=== PATIENT | female | born 1975 | race African-American/Black ===

== ENCOUNTER 2017-05-05 12:50 | Inpatient (IN) | payer OTHER ==
[2017-05-05 15:43] VITALS: BMI 22.3
--- NOTE | 2017-05-05 21:16 | HP ---
CIWA Score - CIWA Score Nausea/Vomitin-Cont. Nausea/Vomiting Muscle Tremors: 4-Moderate,w/Arms Extend Anxiety: 4-Mod. Anxious/Guarded Agitation: 4-Moderately Restless Paroxysmal Sweats: 1-Minimal Palms Moist Orientation: 0-Oriented Tacttile Disturbances: 2-Mild Itch/Numbness/Burn Auditory Disturbances: 0-None Visual Disturbances: 0-None Headache: 0-None Present CIWA-Ar Total Score: 22 Admission ROS S - HPI Chief Complaint: c/o withdrawal sx. seeking detox txment Allergies/Adverse Reactions: Allergies Allergy/AdvReac Type Severity Reaction Status Date / Time No Known Allergies Allergy Verified 05/05/17 20:39 History of Present Illness: 41 Y.O. MALE WITH LONG HX/O ALCOHOLISM SEEKING DETOX TXMENT. CLIENT IS KNOWN TO [facility]. COMPLETED REHAB A MONTH AGO AT [facility] BUT HAS SINCE RELAPSED. SELF REFERRED. PENDING LEGAL ISSUES BUT NOT COURT MANDATED. REPORTS LONGEST CLEAN TIME 1 YEAR. Exam Limitations: No Limitations - Ebola screening Have you traveled outside of the country in the last 21 days: No Have you had contact with anyone from an Ebola affected area: No Have you been sick,other than usual withdrawal symptoms: No Do you have a fever: No - Review of Systems Constitutional: Chills, Loss of Appetite, Night Sweats, Unintentional Wgt. Loss EENT: reports: Tinnitus (LEFT EAR) Respiratory: reports: No Symptoms reported Cardiac: reports: No Symptoms Reported GI: reports: Diarrhea, Poor Appetite, Poor Fluid Intake : reports: No Symptoms Reported Musculoskeletal: reports: Joint Pain (R KNEE) Integumentary: reports: No Symptoms Reported Neuro: reports: Seizure (5 YEARS AGO R/T DRUG AND ALCOHOL) Endocrine: reports: Other (GOITER) Hematology: reports: No Symptoms Reported Psychiatric: reports: Anxious, Depressed Other Systems: Reviewed and Negative Patient History - Patient Medical History Hx Anemia: Yes (NO TXMENT) Hx Asthma: No Hx Chronic Obstructive Pulmonary Disease (COPD): No Hx Cancer: No Hx Cardiac Disorders: Yes (HAD OPEN HEART SURGERY AGE 6) Hx Congestive Heart Failure: No Hx Hypertension: No Hx Hypercholesterolemia: No Hx Pacemaker: No HX Cerebrovascular Accident: No Hx Seizures: No Hx Dementia: No Hx Diabetes: No Hx Gastrointestinal Disorders: No Hx Liver Disease: No Hx Genitourinary Disorders: No Hx Sexually Transmitted Disorders: No Hx Renal Disease (ESRD): No Hx Thyroid Disease: Yes (GOITER) Hx Human Immunodeficiency Virus (HIV): No Hx Hepatitis C: No Hx Depression: Yes (ON MEDS) Hx Suicide Attempt: No Hx Bipolar Disorder: Yes (ON MEDS) Hx Schizophrenia: No Other Medical History: DENIES - Patient Surgical History Past Surgical History: Yes Hx Neurologic Surgery: No Hx Cataract Extraction: No Hx Cardiac Surgery: Yes (asd-left chest ) Hx Lung Surgery: No Hx Breast Surgery: No Hx Breast Biopsy: No Hx Abdominal Surgery: No Hx Appendectomy: No Hx Cholecystectomy: No Hx Genitourinary Surgery: No Hx Section: No Hx Orthopedic Surgery: No Anesthesia Reaction: No - PPD History Previous Implant?: Yes Documented Results: Negative w/proof Implanted On Prior [facility] Admission?: Yes Date: 08/08/15 Results: 0MM PPD to be Administered?: Yes - Reproductive History Patient is a Female of Child Bearing Age (11 -55 yrs old): Yes Last Menstrual Period: 04/27/17 LMP comment: REG Patient : No ([place] - Smoking Cessation Smoking history: Current every day smoker Have you smoked in the past 12 months: Yes Aproximately how many cigarettes per day: 6 Cigars Per Day: 0 Hx Chewing Tobacco Use: No Initiated information on smoking cessation: Yes 'Breaking Loose' booklet given: 05/05/17 - Substance & Tx. History Hx Alcohol Use: Yes Hx Substance Use: Yes Substance Use Type: Alcohol, Cocaine Hx Substance Use Treatment: Yes ([facility]) - Substances Abused LIQUOR Route: Oral Frequency: Daily Amount used: 2 PINTS Age of first use: 19 Date of Last Use: 05/04/17 COCAINE Route: Inhalation Frequency: 3-6 times per week Amount used: 2 BAGS Age of first use: 32 Date of Last Use: 05/04/17 Family Disease History - Family Disease History Family Disease History: CA: Father (prostate), Mother (ovarian ), Respiratory: Mother Admission Physical Exam S - Vital Signs Vital Signs: Vital Signs - 24 hr 05/05/17 15:38 Temperature 97.8 F Pulse Rate 93 H Respiratory 18 Rate Blood Pressure 123/80 - Physical General Appearance: Yes: Appropriately Dressed, Mild Distress, Tremorous, Anxious HEENTM: Yes: EOMI, Normocephalic, MARYA, Pharynx Normal Respiratory: Yes: Chest Non-Tender, Lungs Clear, Normal Breath Sounds, No Respiratory Distress, No Accessory Muscle Use Neck: Yes: No masses,lesions,Nodules, Supple, Thyroid enlarged, Other (GOITER) Breast: Yes: Breast Exam Deferred Cardiology: Yes: Regular Rhythm, S1, S2, Tachycardia Abdominal: Yes: Normal Bowel Sounds, Non Tender, Flat, Soft Genitourinary: Yes: Within Normal Limits Back: Yes: Surgical Scar Musculoskeletal: Yes: full range of Motion, Gait Steady Extremities: Yes: Normal Capillary Refill, Normal Range of Motion, Non-Tender, Tremors Neurological: Yes: Fully Oriented, Alert, Motor Strength 5/5 Integumentary: Yes: Normal Color, Dry, Warm Lymphatic: Yes: Within Normal Limits - Diagnostic (1) Nicotine dependence Current Visit: Yes Status: Acute Qualifiers: Nicotine product type: cigarettes Substance use status: uncomplicated Qualified Code(s): F17.210 - Nicotine dependence, cigarettes, uncomplicated (2) Alcohol dependence with uncomplicated withdrawal Current Visit: Yes Status: Chronic (3) Cannabis abuse Current Visit: No Status: Chronic (4) Cocaine dependence Current Visit: No Status: Chronic Qualifiers: Substance use status: uncomplicated Qualified Code(s): F14.20 - Cocaine dependence, uncomplicated (5) Goiter Current Visit: No Status: Chronic Cleared for Admission [facility] - Detox or Rehab [facility] Level of Care: Medically Managed Detox Regimen/Protocol: Valium Claeared for Rehab Admission: No S Breath Alcohol Content Breath Alcohol Content: 0 Urine Pregancy Test - Result Urine Test Results: Negative- NO Line Present Urine Drug Screen - Results Drug Screen Negative: No Urine Drug Screen Results: THC-Marijuana, ALEX-Cocaine
[2017-05-05] MEDS ORDERED: MENTHOL/PHENOL 1 EACH UD MM PRN (21:29)
[2017-05-05] MEDS ORDERED: NICOTINE POLACRILEX 2 MG GUM BC PRN (21:29)
[2017-05-05] MEDS ORDERED: IBUPROFEN 400 MG TABLET (FP) PO PRN (21:29)
[2017-05-05] MEDS ORDERED: ACETAMINOPHEN 325 MG TABLET (FP) PO PRN (21:29)
[2017-05-05] MEDS ORDERED: MAGNESIUM CITRATE 300 ML BOTTLE PO PRN (21:29)
[2017-05-05] MEDS ORDERED: guaiFENesin/D-METHORPHAN HB 10 ML UNIT-DOSE CUPS PO PRN (21:29)
[2017-05-05] MEDS ORDERED: MAGNESIUM HYDROX 2400MG/30ML ORAL SUSPENSION 30 ML CUP PO PRN (21:29)
[2017-05-05] MEDS ORDERED: LOPERAMIDE HCL 2 MG CAPSULE PO PRN (21:29)
[2017-05-05] MEDS ORDERED: MAG HYDROX/AL HYDROX/SIMETH 30 ML UNIT-DOSE CUP PO PRN (21:29)
[2017-05-05] MEDS ORDERED: P-EPHED 60MG/TRIPROLIDI 2.5MG TABLET PO PRN (21:29)
[2017-05-05] MEDS ORDERED: diazePAM 5 MG TABLET PO ONE (21:29)
[2017-05-05] MEDS: THIAMINE HCL 100 MG TABLET (FP) PO SCH (22:50)
[2017-05-05] MEDS: hydrOXYzine PAMOATE 50 MG CAPSULE (FP) PO PRN (22:50)
[2017-05-05] MEDS: diazePAM 5 MG TABLET PO SCH (22:51)
[2017-05-06] MEDS: diazePAM 5 MG TABLET PO SCH ×3 (06:30→22:33)
[2017-05-06 09:58] LABS: HEMOGLOBIN 12.1 GM/dL (10.7-15.3); WHITE BLOOD COUNT 5.8 K/mm3 (4.0-10.0)
[2017-05-06 10:00] LABS: MCH 29.9 pg (25.7-33.7); MCHC 31.8 g/dl (32.0-36.0); MEAN CELL VOLUME 94.1 fl (80-96); MEAN PLT VOLUME 8.3 fl (7.5-11.1); PLATELET COUNT 268 K/MM3 (134-434); RBC 4.04 M/mm3 (3.60-5.2); RDW 12.7 % (11.6-15.6)
[2017-05-06 10:16] LABS: CHLORIDE 106 mmol/L (98-107); POTASSIUM 3.9 mmol/L (3.5-5.1); SODIUM 143 mmol/L (136-145)
[2017-05-06 10:33] LABS: ALBUMIN 3.2 g/dl (3.4-5.0); ALK PHOS 76 U/L (45-117); ANION GAP 7 (8-16); BILIRUBIN,TOTAL 0.4 mg/dL (0.2-1.0); BLOOD UREA NITROGEN 12 mg/dL (7-18); CALCIUM 8.1 mg/dL (8.5-10.1); CO2 30 mmol/L (21-32); GLUCOSE,RANDOM 81 mg/dL (74-106); SGOT/AST 13 U/L (15-37); SGPT/ALT 18 U/L (12-78); TOT PROT 6.7 g/dl (6.4-8.2)
[2017-05-06] MEDS: PRENATAL VITAMINS W/ FOLIC ACID TABLET (FP) PO SCH (11:46)
[2017-05-06] MEDS: NICOTINE 14 MG/24 HOURS TOPICAL PATCH TD SCH (11:47)
--- NOTE | 2017-05-06 12:25 | EKG ---
Test Reason : Blood Pressure : / mmHG Vent. Rate : 073 BPM Atrial Rate : 073 BPM P-R Int : 138 ms QRS Dur : 130 ms QT Int : 436 ms P-R-T Axes : 065 040 067 degrees QTc Int : 480 ms NORMAL SINUS RHYTHM RIGHT BUNDLE BRANCH BLOCK ABNORMAL ECG NO PREVIOUS ECGS AVAILABLE Confirmed by MD HOWARD, KELLY ([id number]) on 05/06/2017 12:25:10 PM Referred By: Confirmed By:KELLY LAWRENEC MD
--- NOTE | 2017-05-06 13:46 | PN ---
S CIWA - CIWA Score Nausea/Vomitin Muscle Tremors: 3 Anxiety: 3 Agitation: 3 Paroxysmal Sweats: 3 Orientation: 0-Oriented Tacttile Disturbances: 1-Very Mild Itch/Numbness Auditory Disturbances: 0-None Visual Disturbances: 0-None Headache: 0-None Present CIWA-Ar Total Score: 15 S Progress Note (SOAP) Subjective: shakes sweats Objective: 05/06/17 13:44 Vital Signs Temperature 98.4 F 05/06/17 11:58 Pulse Rate 78 05/06/17 11:58 Respiratory Rate 18 05/06/17 11:58 Blood Pressure 112/73 05/06/17 11:58 O2 Sat by Pulse Oximetry (%) Laboratory Last Values WBC 5.8 K/mm3 (4.0-10.0) 05/06/17 06:06 RBC 4.04 M/mm3 (3.60-5.2) 05/06/17 06:06 Hgb 12.1 GM/dL (10.7-15.3) 05/06/17 06:06 Hct 38.0 % (32.4-45.2) 05/06/17 06:06 MCV 94.1 fl (80-96) 05/06/17 06:06 MCH 29.9 pg (25.7-33.7) 05/06/17 06:06 MCHC 31.8 g/dl (32.0-36.0) L 05/06/17 06:06 RDW 12.7 % (11.6-15.6) 05/06/17 06:06 Plt Count 268 K/MM3 (134-434) 05/06/17 06:06 MPV 8.3 fl (7.5-11.1) 05/06/17 06:06 Sodium 143 mmol/L (136-145) 05/06/17 06:06 Potassium 3.9 mmol/L (3.5-5.1) 05/06/17 06:06 Chloride 106 mmol/L (98-107) 05/06/17 06:06 Carbon Dioxide 30 mmol/L (21-32) 05/06/17 06:06 Anion Gap 7 (8-16) L 05/06/17 06:06 BUN 12 mg/dL (7-18) 05/06/17 06:06 Creatinine 1.0 mg/dL (0.55-1.02) 05/06/17 06:06 Creat Clearance w eGFR > 60 (>60) 05/06/17 06:06 Random Glucose 81 mg/dL (74-106) 05/06/17 06:06 Calcium 8.1 mg/dL (8.5-10.1) L 05/06/17 06:06 Total Bilirubin 0.4 mg/dL (0.2-1.0) D 05/06/17 06:06 AST 13 U/L (15-37) L 05/06/17 06:06 ALT 18 U/L (12-78) 05/06/17 06:06 Alkaline Phosphatase 76 U/L (45-117) 05/06/17 06:06 Total Protein 6.7 g/dl (6.4-8.2) 05/06/17 06:06 Albumin 3.2 g/dl (3.4-5.0) L 05/06/17 06:06 RPR Titer Nonreactive (NONREACTIVE) 05/06/17 06:06 labs noted Assessment: 05/06/17 13:45 withdrawal sx Plan: continue detox
[2017-05-06] MEDS: diazePAM 5 MG TABLET PO PRN (17:16)
--- NOTE | 2017-05-06 17:18 | CONSULT ---
[facility] Psychiatric Consult - Data Date of interview: 05/06/17 Admission source: [facility] Identifying data: Readmission to [facility] for this 41 y/o AA female seeking detox treatment on for alcohol,cocaine and marihuana dependence.Patient is single,a mother of two,domiciled,unemployed and supported on food stamps. Substance Abuse History: Confirmed by patient in this interview : Smoking history: Current every day smoker. Have you smoked in the past 12 months: Yes. Aproximately how many cigarettes per day: 6. Cigars Per Day: 0. Hx Chewing Tobacco Use: No. Initiated information on smoking cessation: Yes. 'Breaking Loose' booklet given: 05/05/17. - Substance & Tx. History. Hx Alcohol Use: Yes. Hx Substance Use: Yes. Substance Use Type: Alcohol, Cocaine. Hx Substance Use Treatment: Yes ([facility]). - Substances Abused. LIQUOR. Route: Oral. Frequency: Daily. Amount used: 2 PINTS. Age of first use: 19. Date of Last Use: 05/04/17. COCAINE. Route: Inhalation. Frequency: 3-6 times per week. Amount used: 2 BAGS. Age of first use: 32. Date of Last Use: 05/04/17 Medical History: Anemia,goiter and a remote history of open heart surgery (age [age]) for atrial septal defect. Psychiatric History: First contact with Psychiatry (age 18).Issues : behavioral disturbances and school truancy.Diagnosed later in life with Bipolar Disorder.Currently maintained on seroquel 200 mg/hs + 50 mg/am in combination with depakote 500 mg po bid.Ms Salazar admits to 3-4 psychiatric hospitalizations ([facility] and [facility]).Lost to psychiatric OPD care.Patient indicates that she gets medications from sporadic admissions to local detox/rehab units (recently discharged from [facility]).Denies history of suicide attempts. Physical/Sexual Abuse/Trauma History: Patient denies. Additional Comment: Urine Drug Screen Results: THC-Marijuana, ALEX-Cocaine.Noted. Mental Status Exam - Mental Status Exam Alert and Oriented to: Time, Place, Person Cognitive Function: Good Patient Appearance: Well Groomed Mood: Hopeful, Euthymic Affect: Appropriate, Normal Range Patient Behavior: Fatigued, Cooperative Speech Pattern: Clear, Appropriate Voice Loudness: Normal Thought Process: Intact, Goal Oriented Thought Disorder: Not Present Hallucinations: Denies Suicidal Ideation: Denies Homicidal Ideation: Denies Insight/Judgement: Poor Sleep: Poorly, Difficulty falling asleep Appetite: Good Muscle strength/Tone: Normal Gait/Station: Normal Psychiatric Findings - Problem List ([place] 1, 2,3) (1) Alcohol dependence with uncomplicated withdrawal Current Visit: Yes Status: Acute (2) Cannabis abuse Current Visit: Yes Status: Acute (3) Cocaine dependence Current Visit: Yes Status: Acute Qualifiers: Substance use status: uncomplicated Qualified Code(s): F14.20 - Cocaine dependence, uncomplicated (4) Nicotine dependence Current Visit: Yes Status: Acute Qualifiers: Nicotine product type: cigarettes Substance use status: uncomplicated Qualified Code(s): F17.210 - Nicotine dependence, cigarettes, uncomplicated (5) Substance induced mood disorder Current Visit: Yes Status: Acute (6) Bipolar disorder Current Visit: Yes Status: Chronic Comment: History.Currently asymptomatic.Prescribed medications.Non-adherent to OPD care. (7) Insomnia Current Visit: Yes Status: Acute - Initial Treatment Plan Initial Treatment Plan: Records at [facility] : revisited.Psychoeducation and support provided in this session.Sleeep hygiene discussed.Detoxification in effect.Medications : seroquel 100 mg po hs + depakote 250 mg po bid.Ordered.Titration to follow if good tolerability.Side effects/benefits of both drugs are discussed with the patient.Informed of potential for liver dysfunction,blood dyscrasias,weight gain,hair loss,polycystic ovary (valproate) and oversedation,abnormal involuntary movements,metabolic syndrome and cardiovascular adverse events (quetiapine).No reported history of adverse effects on this regimen.Patient consented (verbally) to resume these medications.Observation.
[2017-05-06] MEDS: THIAMINE HCL 100 MG TABLET (FP) PO SCH (22:32)
[2017-05-06] MEDS: DIVALPROEX SODIUM 250 MG TABLET E.C. (FP) PO SCH (22:33)
[2017-05-06] MEDS: QUEtiapine FUMARATE 100 MG TABLET (FP) PO SCH (22:33)
--- NOTE | 2017-05-07 10:18 | PN ---
[facility] CIWA - CIWA Score Nausea/Vomitin-No Nausea/No Vomiting Muscle Tremors: 3 Anxiety: 3 Agitation: 3 Paroxysmal Sweats: 1-Minimal Palms Moist Orientation: 0-Oriented Tacttile Disturbances: 0-None Auditory Disturbances: 0-None Visual Disturbances: 0-None Headache: 0-None Present CIWA-Ar Total Score: 10 S Progress Note (SOAP) Subjective: tremor sweat anxiety Objective: 05/07/17 10:17 Vital Signs Temperature 98.2 F 05/07/17 06:00 Pulse Rate 71 05/07/17 06:00 Respiratory Rate 16 05/07/17 06:00 Blood Pressure 91/61 05/07/17 06:00 O2 Sat by Pulse Oximetry (%) Laboratory Last Values WBC 5.8 K/mm3 (4.0-10.0) 05/06/17 06:06 RBC 4.04 M/mm3 (3.60-5.2) 05/06/17 06:06 Hgb 12.1 GM/dL (10.7-15.3) 05/06/17 06:06 Hct 38.0 % (32.4-45.2) 05/06/17 06:06 MCV 94.1 fl (80-96) 05/06/17 06:06 MCH 29.9 pg (25.7-33.7) 05/06/17 06:06 MCHC 31.8 g/dl (32.0-36.0) L 05/06/17 06:06 RDW 12.7 % (11.6-15.6) 05/06/17 06:06 Plt Count 268 K/MM3 (134-434) 05/06/17 06:06 MPV 8.3 fl (7.5-11.1) 05/06/17 06:06 Sodium 143 mmol/L (136-145) 05/06/17 06:06 Potassium 3.9 mmol/L (3.5-5.1) 05/06/17 06:06 Chloride 106 mmol/L (98-107) 05/06/17 06:06 Carbon Dioxide 30 mmol/L (21-32) 05/06/17 06:06 Anion Gap 7 (8-16) L 05/06/17 06:06 BUN 12 mg/dL (7-18) 05/06/17 06:06 Creatinine 1.0 mg/dL (0.55-1.02) 05/06/17 06:06 Creat Clearance w eGFR > 60 (>60) 05/06/17 06:06 Random Glucose 81 mg/dL (74-106) 05/06/17 06:06 Calcium 8.1 mg/dL (8.5-10.1) L 05/06/17 06:06 Total Bilirubin 0.4 mg/dL (0.2-1.0) D 05/06/17 06:06 AST 13 U/L (15-37) L 05/06/17 06:06 ALT 18 U/L (12-78) 05/06/17 06:06 Alkaline Phosphatase 76 U/L (45-117) 05/06/17 06:06 Total Protein 6.7 g/dl (6.4-8.2) 05/06/17 06:06 Albumin 3.2 g/dl (3.4-5.0) L 05/06/17 06:06 RPR Titer Nonreactive (NONREACTIVE) 05/06/17 06:06 Hepatitis C Antibody <0.1 s/co ratio (0.0-0.9) 05/06/17 06:06 lab noted Assessment: 05/07/17 10:17 withdrawal sx Plan: continue detox
[2017-05-07] MEDS: diazePAM 5 MG TABLET PO SCH ×2 (10:52→22:33)
[2017-05-07] MEDS: PRENATAL VITAMINS W/ FOLIC ACID TABLET (FP) PO SCH (10:52)
[2017-05-07] MEDS: DIVALPROEX SODIUM 250 MG TABLET E.C. (FP) PO SCH ×2 (10:53→22:33)
[2017-05-07] MEDS: NICOTINE 14 MG/24 HOURS TOPICAL PATCH TD SCH (10:53)
--- NOTE | 2017-05-07 11:55 | PN ---
Psychiatric Progress Note Vital Signs: Vital Signs Period Temp Pulse Resp BP Sys/Gray Pulse Ox Last 24 Hr 96.4 F-98.8 F 71-83 16-18 91-118/57-74 Current Medications: Active Medications Generic Name Dose Route Start Last Admin Trade Name Freq PRN Reason Stop Dose Admin Acetaminophen 650 mg 05/05/17 21:29 Tylenol - PO Q4H PRN FEVER Al Hydroxide/Mg Hydroxide 30 ml 05/05/17 21:29 Mylanta Oral Suspension - PO Q6H PRN DYSPEPSIA Diazepam 10 mg 05/05/17 21:29 05/06/17 17:16 Valium - PO 05/08/17 21:28 10 mg Q4H PRN Administration WITHDRAWAL(CONT SUBST) Diazepam 5 mg 05/07/17 10:00 05/07/17 10:52 Valium - PO 05/08/17 22:01 5 mg BID DONNIE Administration Diazepam 5 mg 05/09/17 10:00 Valium - PO 05/09/17 10:01 DAILY DONNIE Divalproex Sodium 250 mg 05/06/17 22:00 05/07/17 10:53 Depakote - PO 250 mg BID DONNIE Administration Eucalyptus/Menthol/Phenol/Sorbitol 1 each 05/05/17 21:29 Cepastat Lozenge - MM Q4H PRN SORE THROAT Guaifenesin 10 ml 05/05/17 21:29 Robitussin Dm - PO Q6H PRN COUGH Hydroxyzine Pamoate 50 mg 05/05/17 21:29 05/05/17 22:50 Vistaril - PO 50 mg Q4H PRN Administration AGITATION Ibuprofen 400 mg 05/05/17 21:29 Motrin - PO Q6H PRN PAIN LEVEL 4-6 Loperamide HCl 4 mg 05/05/17 21:29 Imodium - PO Q6H PRN DIARRHEA Magnesium Citrate 300 ml 05/05/17 21:29 Citroma - PO Q48H PRN CONSTIPATION Magnesium Hydroxide 30 ml 05/05/17 21:29 Milk Of Magnesia - PO DAILY PRN CONSTIPATION Nicotine 14 mg 05/06/17 10:00 05/07/17 10:53 Nicoderm Patch - TD Not Given DAILY DONNIE Nicotine Polacrilex 2 mg 05/05/17 21:29 Nicorette Gum - BC Q2H PRN NICOTINE REPLACEMENT RX Multivit/Folic Acid/Iron 1 tab 05/06/17 10:00 05/07/17 10:52 Vitamins (Sjr) - PO 1 tab DAILY DONNIE Administration Pseudoephedrine/Triprolidine 1 combo 05/05/17 21:29 Actifed - PO TID PRN NASAL CONGESTION Quetiapine Fumarate 100 mg 05/06/17 22:00 05/06/17 22:33 Seroquel - PO 100 mg HS DONNIE Administration Thiamine HCl 100 mg 05/05/17 22:00 05/06/17 22:32 Vitamin B1 - PO 100 mg HS DONNIE Administration
--- NOTE | 2017-05-07 12:02 | PN ---
Psychiatric Progress Note Vital Signs: Vital Signs Period Temp Pulse Resp BP Sys/Gray Pulse Ox Last 24 Hr 96.4 F-98.8 F 71-83 16-18 91-118/57-74 Date of Session: 05/07/17 Chief Complaint:: Request for morning dose of Seroquel HPI: Patient addressing Alcohol and Cannabid Dependence Current Medications: Active Medications Generic Name Dose Route Start Last Admin Trade Name Freq PRN Reason Stop Dose Admin Acetaminophen 650 mg 05/05/17 21:29 Tylenol - PO Q4H PRN FEVER Al Hydroxide/Mg Hydroxide 30 ml 05/05/17 21:29 Mylanta Oral Suspension - PO Q6H PRN DYSPEPSIA Diazepam 10 mg 05/05/17 21:29 05/06/17 17:16 Valium - PO 05/08/17 21:28 10 mg Q4H PRN Administration WITHDRAWAL(CONT SUBST) Diazepam 5 mg 05/07/17 10:00 05/07/17 10:52 Valium - PO 05/08/17 22:01 5 mg BID DONNIE Administration Diazepam 5 mg 05/09/17 10:00 Valium - PO 05/09/17 10:01 DAILY DONNIE Divalproex Sodium 250 mg 05/06/17 22:00 05/07/17 10:53 Depakote - PO 250 mg BID DONNIE Administration Eucalyptus/Menthol/Phenol/Sorbitol 1 each 05/05/17 21:29 Cepastat Lozenge - MM Q4H PRN SORE THROAT Guaifenesin 10 ml 05/05/17 21:29 Robitussin Dm - PO Q6H PRN COUGH Hydroxyzine Pamoate 50 mg 05/05/17 21:29 05/05/17 22:50 Vistaril - PO 50 mg Q4H PRN Administration AGITATION Ibuprofen 400 mg 05/05/17 21:29 Motrin - PO Q6H PRN PAIN LEVEL 4-6 Loperamide HCl 4 mg 05/05/17 21:29 Imodium - PO Q6H PRN DIARRHEA Magnesium Citrate 300 ml 05/05/17 21:29 Citroma - PO Q48H PRN CONSTIPATION Magnesium Hydroxide 30 ml 05/05/17 21:29 Milk Of Magnesia - PO DAILY PRN CONSTIPATION Nicotine 14 mg 05/06/17 10:00 05/07/17 10:53 Nicoderm Patch - TD Not Given DAILY DONNIE Nicotine Polacrilex 2 mg 05/05/17 21:29 Nicorette Gum - BC Q2H PRN NICOTINE REPLACEMENT RX Multivit/Folic Acid/Iron 1 tab 05/06/17 10:00 05/07/17 10:52 Vitamins (Sjr) - PO 1 tab DAILY DONNIE Administration Pseudoephedrine/Triprolidine 1 combo 05/05/17 21:29 Actifed - PO TID PRN NASAL CONGESTION Quetiapine Fumarate 100 mg 05/06/17 22:00 05/06/17 22:33 Seroquel - PO 100 mg HS DONNIE Administration Thiamine HCl 100 mg 05/05/17 22:00 05/06/17 22:32 Vitamin B1 - PO 100 mg HS DONNIE Administration Medication(s) Change(s): Resume Seroquel 50 mg po daily Current Side Effect: No Lab tests ordered: Yes Lab tests reviewed: Yes Provider note:: Patient reports that she was not given her medications as prescribed by her psychiatrist. She said she takes Seroquel 50 mg dailt & 200 mg HS. She was explained the reason for the modification of her med dosage. She requests to be ordered her 50 mg morning dose Total face to face time:: 15 Mental Status Exam - Mental Status Exam Alert and Oriented to: Time, Place, Person Cognitive Function: Fair Patient Appearance: Well Groomed Mood: Hopeful, Euthymic Affect: Appropriate Patient Behavior: Cooperative Speech Pattern: Clear Voice Loudness: Normal Thought Process: Intact, Goal Oriented Thought Disorder: Not Present Hallucinations: Denies Suicidal Ideation: Denies Homicidal Ideation: Denies Insight/Judgement: Poor Sleep: Fair Muscle strength/Tone: Normal Gait/Station: Normal Psychiatric Treatment Plan - Problem List (1) Alcohol dependence with uncomplicated withdrawal Current Visit: Yes (2) Cocaine dependence Current Visit: Yes Qualifiers: Substance use status: uncomplicated Qualified Code(s): F14.20 - Cocaine dependence, uncomplicated (3) Cannabis abuse Current Visit: Yes (4) Nicotine dependence Current Visit: Yes Qualifiers: Nicotine product type: cigarettes Substance use status: uncomplicated Qualified Code(s): F17.210 - Nicotine dependence, cigarettes, uncomplicated (5) Bipolar disorder Current Visit: Yes Comment: History.Currently asymptomatic.Prescribed medications.Non-adherent to OPD care. (6) Substance induced mood disorder Current Visit: Yes Initial treatment plan: 1) Resume Seroquel 50 mg po daily. 2) Continue inpatient detoxification
[2017-05-07] MEDS: QUEtiapine FUMARATE 50 MG TABLET PO SCH (14:09)
[2017-05-07] MEDS: diazePAM 5 MG TABLET PO PRN (20:15)
[2017-05-07] MEDS: THIAMINE HCL 100 MG TABLET (FP) PO SCH (22:33)
[2017-05-07] MEDS: QUEtiapine FUMARATE 100 MG TABLET (FP) PO SCH (22:33)
[2017-05-07] MEDS: hydrOXYzine PAMOATE 50 MG CAPSULE (FP) PO PRN (22:34)
[2017-05-08] MEDS: QUEtiapine FUMARATE 50 MG TABLET PO SCH (10:45)
[2017-05-08] MEDS: NICOTINE 14 MG/24 HOURS TOPICAL PATCH TD SCH (10:45)
[2017-05-08] MEDS: DIVALPROEX SODIUM 250 MG TABLET E.C. (FP) PO SCH ×2 (10:45→22:31)
[2017-05-08] MEDS: PRENATAL VITAMINS W/ FOLIC ACID TABLET (FP) PO SCH (10:45)
[2017-05-08] MEDS: diazePAM 5 MG TABLET PO SCH ×2 (10:46→22:31)
[2017-05-08 13:39] LABS: URINE APPEARANCE SLCLOUDY; URINE BILIRUBIN NEGATIVE (NEGATIVE); URINE BLOOD NEGATIVE (NEGATIVE); URINE COLOR YELLOW; URINE GLUCOSE (UA) NEGATIVE (NEGATIVE); URINE KETONE NEGATIVE (NEGATIVE); URINE LEUK ESTERASE TRACE (NEGATIVE); URINE NITRITE POSITIVE (NEGATIVE); URINE PROTEIN NEGATIVE (NEGATIVE); URINE UROBILINOGEN NEGATIVE mg/dL (0.2-1.0)
[2017-05-08 13:54] LABS: CALCIUM OXALATE CRYSTALS FEW /hpf (NONE SEEN); EPI CELLS RARE /HPF (FEW); URINE BACTERIA MODERATE /hpf (NONE SEEN); URINE MUCUS MODERATE
--- NOTE | 2017-05-08 15:30 | PN ---
[facility] Progress Note (SOAP) Subjective: tired shakes sweats Objective: 05/08/17 15:28 ambulating steadily on unit Vital Signs Temperature 96.3 F L 05/08/17 14:51 Pulse Rate 98 H 05/08/17 14:51 Respiratory Rate 16 05/08/17 14:51 Blood Pressure 148/78 05/08/17 14:51 O2 Sat by Pulse Oximetry (%) Laboratory Last Values WBC 5.8 K/mm3 (4.0-10.0) 05/06/17 06:06 RBC 4.04 M/mm3 (3.60-5.2) 05/06/17 06:06 Hgb 12.1 GM/dL (10.7-15.3) 05/06/17 06:06 Hct 38.0 % (32.4-45.2) 05/06/17 06:06 MCV 94.1 fl (80-96) 05/06/17 06:06 MCH 29.9 pg (25.7-33.7) 05/06/17 06:06 MCHC 31.8 g/dl (32.0-36.0) L 05/06/17 06:06 RDW 12.7 % (11.6-15.6) 05/06/17 06:06 Plt Count 268 K/MM3 (134-434) 05/06/17 06:06 MPV 8.3 fl (7.5-11.1) 05/06/17 06:06 Sodium 143 mmol/L (136-145) 05/06/17 06:06 Potassium 3.9 mmol/L (3.5-5.1) 05/06/17 06:06 Chloride 106 mmol/L (98-107) 05/06/17 06:06 Carbon Dioxide 30 mmol/L (21-32) 05/06/17 06:06 Anion Gap 7 (8-16) L 05/06/17 06:06 BUN 12 mg/dL (7-18) 05/06/17 06:06 Creatinine 1.0 mg/dL (0.55-1.02) 05/06/17 06:06 Creat Clearance w eGFR > 60 (>60) 05/06/17 06:06 Random Glucose 81 mg/dL (74-106) 05/06/17 06:06 Calcium 8.1 mg/dL (8.5-10.1) L 05/06/17 06:06 Total Bilirubin 0.4 mg/dL (0.2-1.0) D 05/06/17 06:06 AST 13 U/L (15-37) L 05/06/17 06:06 ALT 18 U/L (12-78) 05/06/17 06:06 Alkaline Phosphatase 76 U/L (45-117) 05/06/17 06:06 Total Protein 6.7 g/dl (6.4-8.2) 05/06/17 06:06 Albumin 3.2 g/dl (3.4-5.0) L 05/06/17 06:06 Urine Color Yellow 05/08/17 10:40 Urine Appearance Slcloudy 05/08/17 10:40 Urine pH 5.0 (5.0-8.0) 05/08/17 10:40 Ur Specific [place] 1.018 (1.001-1.035) 05/08/17 10:40 Urine Protein Negative (NEGATIVE) 05/08/17 10:40 Urine Glucose (UA) Negative (NEGATIVE) 05/08/17 10:40 Urine Ketones Negative (NEGATIVE) 05/08/17 10:40 Urine Blood Negative (NEGATIVE) 05/08/17 10:40 Urine Nitrite Positive (NEGATIVE) 05/08/17 10:40 Urine Bilirubin Negative (NEGATIVE) 05/08/17 10:40 Urine Urobilinogen Negative mg/dL (0.2-1.0) 05/08/17 10:40 Ur Leukocyte Esterase Trace (NEGATIVE) 05/08/17 10:40 Urine WBC (Auto) 4 /hpf (3-5) 05/08/17 10:40 Urine RBC (Auto) <1 /hpf (0-3) 05/08/17 10:40 Ur Epithelial Cells Rare /HPF (FEW) 05/08/17 10:40 Calcium Oxalate Crystal Few /hpf (NONE SEEN) 05/08/17 10:40 Urine Bacteria Moderate /hpf (NONE SEEN) 05/08/17 10:40 Urine Mucus Moderate 05/08/17 10:40 Valproic Acid 7.665 ug/ml (50-100) L 05/07/17 07:30 RPR Titer Nonreactive (NONREACTIVE) 05/06/17 06:06 Hepatitis C Antibody <0.1 s/co ratio (0.0-0.9) 05/06/17 06:06 labs noted, pt denies UTI symptoms/complaints Assessment: 05/08/17 15:28 withdrawal sx Plan: continue detox increase fluid intake
[2017-05-08] MEDS: hydrOXYzine PAMOATE 50 MG CAPSULE (FP) PO PRN ×2 (17:46→22:32)
[2017-05-08] MEDS: QUEtiapine FUMARATE 100 MG TABLET (FP) PO SCH (22:31)
[2017-05-08] MEDS: THIAMINE HCL 100 MG TABLET (FP) PO SCH (22:31)
[2017-05-09 09:50] VITALS: BP 112/75; PULSE 89; TEMP 97.7
[2017-05-09] MEDS ORDERED: diazePAM 5 MG TABLET PO SCH (10:00)
[2017-05-09] MEDS: PRENATAL VITAMINS W/ FOLIC ACID TABLET (FP) PO SCH (11:07)
[2017-05-09] MEDS: QUEtiapine FUMARATE 50 MG TABLET PO SCH (11:07)
[2017-05-09] MEDS: NICOTINE 14 MG/24 HOURS TOPICAL PATCH TD SCH (11:08)
[2017-05-09] MEDS: DIVALPROEX SODIUM 250 MG TABLET E.C. (FP) PO SCH (11:12)
--- NOTE | 2017-05-09 11:13 | DS ---
[facility] Detox Discharge Summary Admission Date: 05/05/17 Discharge Date: 05/09/17 - History Present History: Alcohol Dependence - Physical Exam Results Vital Signs: Vital Signs Temperature 97.7 F 05/09/17 09:49 Pulse Rate 89 05/09/17 09:49 Respiratory Rate 16 05/09/17 09:49 Blood Pressure 112/75 05/09/17 09:49 O2 Sat by Pulse Oximetry (%) Pertinent Admission Physical Exam Findings: withdrawal sx Vital Signs Temperature 97.7 F 05/09/17 09:49 Pulse Rate 89 05/09/17 09:49 Respiratory Rate 16 05/09/17 09:49 Blood Pressure 112/75 05/09/17 09:49 O2 Sat by Pulse Oximetry (%) Laboratory Last Values WBC 5.8 K/mm3 (4.0-10.0) 05/06/17 06:06 RBC 4.04 M/mm3 (3.60-5.2) 05/06/17 06:06 Hgb 12.1 GM/dL (10.7-15.3) 05/06/17 06:06 Hct 38.0 % (32.4-45.2) 05/06/17 06:06 MCV 94.1 fl (80-96) 05/06/17 06:06 MCH 29.9 pg (25.7-33.7) 05/06/17 06:06 MCHC 31.8 g/dl (32.0-36.0) L 05/06/17 06:06 RDW 12.7 % (11.6-15.6) 05/06/17 06:06 Plt Count 268 K/MM3 (134-434) 05/06/17 06:06 MPV 8.3 fl (7.5-11.1) 05/06/17 06:06 Sodium 143 mmol/L (136-145) 05/06/17 06:06 Potassium 3.9 mmol/L (3.5-5.1) 05/06/17 06:06 Chloride 106 mmol/L (98-107) 05/06/17 06:06 Carbon Dioxide 30 mmol/L (21-32) 05/06/17 06:06 Anion Gap 7 (8-16) L 05/06/17 06:06 BUN 12 mg/dL (7-18) 05/06/17 06:06 Creatinine 1.0 mg/dL (0.55-1.02) 05/06/17 06:06 Creat Clearance w eGFR > 60 (>60) 05/06/17 06:06 Random Glucose 81 mg/dL (74-106) 05/06/17 06:06 Calcium 8.1 mg/dL (8.5-10.1) L 05/06/17 06:06 Total Bilirubin 0.4 mg/dL (0.2-1.0) D 05/06/17 06:06 AST 13 U/L (15-37) L 05/06/17 06:06 ALT 18 U/L (12-78) 05/06/17 06:06 Alkaline Phosphatase 76 U/L (45-117) 05/06/17 06:06 Total Protein 6.7 g/dl (6.4-8.2) 05/06/17 06:06 Albumin 3.2 g/dl (3.4-5.0) L 05/06/17 06:06 Urine Color Yellow 05/08/17 10:40 Urine Appearance Slcloudy 05/08/17 10:40 Urine pH 5.0 (5.0-8.0) 05/08/17 10:40 Ur Specific [place] 1.018 (1.001-1.035) 05/08/17 10:40 Urine Protein Negative (NEGATIVE) 05/08/17 10:40 Urine Glucose (UA) Negative (NEGATIVE) 05/08/17 10:40 Urine Ketones Negative (NEGATIVE) 05/08/17 10:40 Urine Blood Negative (NEGATIVE) 05/08/17 10:40 Urine Nitrite Positive (NEGATIVE) 05/08/17 10:40 Urine Bilirubin Negative (NEGATIVE) 05/08/17 10:40 Urine Urobilinogen Negative mg/dL (0.2-1.0) 05/08/17 10:40 Ur Leukocyte Esterase Trace (NEGATIVE) 05/08/17 10:40 Urine WBC (Auto) 4 /hpf (3-5) 05/08/17 10:40 Urine RBC (Auto) <1 /hpf (0-3) 05/08/17 10:40 Ur Epithelial Cells Rare /HPF (FEW) 05/08/17 10:40 Calcium Oxalate Crystal Few /hpf (NONE SEEN) 05/08/17 10:40 Urine Bacteria Moderate /hpf (NONE SEEN) 05/08/17 10:40 Urine Mucus Moderate 05/08/17 10:40 Valproic Acid 7.665 ug/ml (50-100) L 05/07/17 07:30 RPR Titer Nonreactive (NONREACTIVE) 05/06/17 06:06 Hepatitis C Antibody <0.1 s/co ratio (0.0-0.9) 05/06/17 06:06 lab noted - Treatment Hospital Course: Detox Protocol Followed, Detoxed Safely, Responded well, Discharged Condition Good, Rehab Referral Accepted Patient has Accepted a Rehab Referral to: as per counselor arranged - Medication Discharge Medications: Ambulatory Orders Divalproex [Depakote -] 500 mg PO HS 05/05/17 Quetiapine Fumarate [Seroquel -] 50 mg PO DAILY 05/05/17 Quetiapine Fumarate [Seroquel -] 200 mg PO HS 05/05/17 - Diagnosis (1) Alcohol dependence with uncomplicated withdrawal Current Visit: Yes Status: Acute (2) Nicotine dependence Current Visit: Yes Status: Acute Qualifiers: Nicotine product type: cigarettes Substance use status: in withdrawal Qualified Code(s): F17.213 - Nicotine dependence, cigarettes, with withdrawal (3) Hyperlipidemia Current Visit: Yes Status: Chronic Qualifiers: Hyperlipidemia type: pure hypercholesterolemia Qualified Code(s): E78.00 - Pure hypercholesterolemia, unspecified; E78.0 - Pure hypercholesterolemia - AMA Did Patient Leave Against Medical Advice: No
== END 2017-05-09 14:11 | disposition home or self-care (01) | DRG 774 ==
LOC: YASAS 12:50 → Y6N 21:01
PROVIDERS: ADMIT Internal Medicine; ATTEND Internal Medicine
PROC: HZ2ZZZZ Detoxification Services for Substance Abuse Treatment (ICD-10-PCS; principal; 2017-05-05)
DX: F10.230 Alcohol dependence with withdrawal, uncomplicated (principal); F14.20 Cocaine dependence, uncomplicated; F12.10 Cannabis abuse, uncomplicated; F17.213 Nicotine dependence, cigarettes, with withdrawal; F31.9 Bipolar disorder, unspecified; F19.24 Other psychoactive substance dependence with psychoactive substance-induced mood disorder; E78.5 Hyperlipidemia, unspecified; E04.9 Nontoxic goiter, unspecified; G47.00 Insomnia, unspecified; R00.0 Tachycardia, unspecified
CPT/HCPCS: 36415; 80053; 80164; 81003; 81015; 85027; 86593; 86803; 93005; 93010